=== PATIENT | female | born 1945 | race Caucasian/White ===

== ENCOUNTER 2019-05-24 17:40 | Inpatient (IN) ==
[2019-05-24] MEDS ORDERED: SODIUM CHLORIDE 0.9% 1,000 ML IV STA (18:07)
[2019-05-24 19:01] LABS: Basophils % 0.2 % (0.0-0.8); Eosinophils % 0.1 % (0.00-10.9); Hemoglobin 13.4 GM/DL (12.0-16.0); Immature Granulocytes % 0.9 %; Immature Granulocytes Absolute 0.16 #; Lymphocytes # 1.3 10*3/uL (1.4-4.0); Lymphocytes % 7.4 % (21.3-54.2); Mean Corpuscular HGB Conc 33.5 GM/DL (32-36); Mean Corpuscular Volume 88.3 FL (87-102); Mean Platelet Volume 10.6 FL (9.6-12.0); Monocytes % 8.2 % (1.7-12.7); Neutrophils % 83.2 % (38.7-73.9); Platelet Count 416 T/CUMM (130-400); Red Blood Count 4.53 MC/CUMM (3.8-5.5); Red Cell Distribution Width 15.3 % (9.3-17.3); White Blood Count 17.8 T/CUMM (4-12)
[2019-05-24 19:16] LABS: INR 1.1; PT Patient Result 11.9 SECS (9.6-12.2); Partial Thromboplastin Time 34.3 SECS (20.8-36.0)
[2019-05-24] MEDS ORDERED: CLINDAMYCIN INJ 900 MG in PREMIX 1 EACH IV STA (19:20)
[2019-05-24 19:22] LABS: Albumin 1.9 G/DL (3.4-5.0); Bilirubin,Total 1.2 MG/DL (0.2-1.0); Calcium 6.9 MG/DL (8.5-10.1); Osmolality,Calculated 286.7 MOS/KG (273-304); Total Protein 4.9 G/DL (6.4-8.3)
[2019-05-24 19:26] LABS: Apearance,Urine Slightly Hazy (Clear); Bacteria,Urine Occasional /HPF (Few); Bilirubin,Urine Negative (Negative); Blood, Urine Negative (Negative); Glucose,Urine (UA) Negative (Negative); Hyaline Casts,Urine 46 /LPF (0-3); Ketones,Urine 80 mg/dL (Negative); Mucus,Urine Many /LPF (Occasional); Nitrite,Urine Negative (Negative); Protein,Urine 30 MG/DL; Squamous Epithelial Cell,Urine Occasional /HPF (0-10); Urine Color Yellow (Yellow); Urine Specific Gravity 1.021 (1.001-1.035)
[2019-05-24] MEDS ORDERED: POTASSIUM CHLORIDE RIDER 20 MEQ in PREMIX 1 EACH IV STA (19:27)
[2019-05-24] MEDS ORDERED: POTASSIUM CHLORIDE RIDER 100 ML IV ONE (19:28)
[2019-05-24] MEDS ORDERED: POTASSIUM CHLORIDE RIDER 10 MEQ in PREMIX 1 EACH IV ONE (19:28)
[2019-05-24] MEDS ORDERED: DEXTROSE 50% 25 GM/50 ML VIAL IV STA (19:30)
[2019-05-24] MEDS ORDERED: DEXTROSE 50% 25 GM/50 ML SYRINGE IV ONE (19:34)
[2019-05-24] MEDS ORDERED: ONDANSETRON 4 MG/2 ML VIAL IV PRN (19:41)
[2019-05-24] MEDS ORDERED: SODIUM CHLORIDE 0.9% 1,000 ML IV ONE (21:39)
[2019-05-24] MEDS: DOCUSATE SODIUM 100 MG CAPSULE PO SCH (22:36)
[2019-05-24] MEDS: SODIUM CHLORIDE 0.45% 1,000 ML IV SCH (23:35)
[2019-05-25] MEDS ORDERED: SODIUM CHLORIDE 0.9% 1,000 ML IV ONE ×2 (01:04→23:43)
[2019-05-25] MEDS ORDERED: NOREPINEPHRINE 8 MG in SODIUM CHLORIDE 0.9% 242 ML IV PRN (01:04)
[2019-05-25 02:01] LABS: CKMB % 4.1 %; Troponin I < 0.015 NG/ML (0.00-0.045)
[2019-05-25] MEDS: CLINDAMYCIN 900 MG IV SCH ×3 (04:29→20:49)
[2019-05-25 05:41] LABS: CKMB % 4.1 %; Troponin I < 0.015 NG/ML (0.00-0.045)
[2019-05-25 07:28] LABS: CKMB % 4.3 %; Troponin I < 0.015 NG/ML (0.00-0.045)
[2019-05-25] MEDS: SODIUM CHLORIDE 0.45% 1,000 ML IV SCH (07:41)
[2019-05-25 08:00] LABS: Basophils % 0.3 % (0.0-0.8); Eosinophils # 0.1 10*3/uL (0.0-0.87); Eosinophils % 0.5 % (0.00-10.9); Hematocrit 37.7 VOL% (35.7-47.0); Hemoglobin 12.4 GM/DL (12.0-16.0); Immature Granulocytes % 0.9 %; Immature Granulocytes Absolute 0.12 #; Lymphocytes # 1.5 10*3/uL (1.4-4.0); Lymphocytes % 11.2 % (21.3-54.2); Mean Corpuscular HGB Conc 32.9 GM/DL (32-36); Mean Corpuscular Volume 89.5 FL (87-102); Mean Platelet Volume 10.8 FL (9.6-12.0); Monocytes % 10.1 % (1.7-12.7); Platelet Count 355 T/CUMM (130-400); Red Blood Count 4.21 MC/CUMM (3.8-5.5); Red Cell Distribution Width 15.7 % (9.3-17.3); White Blood Count 13.3 T/CUMM (4-12)
[2019-05-25 08:09] LABS: Albumin 1.9 G/DL (3.4-5.0); Bilirubin,Total 1.1 MG/DL (0.2-1.0); Osmolality,Calculated 274.5 MOS/KG (273-304)
[2019-05-25] MEDS ORDERED: diphenhydrAMINE CAP 25 MG CAPSULE PO PRN (08:23)
[2019-05-25] MEDS ORDERED: MAGNESIUM SULF RIDER 4 GM in PREMIX 1 EACH IV PRN (08:23)
[2019-05-25] MEDS ORDERED: MAGNESIUM SULF RIDER 2 GM in PREMIX 1 EACH IV PRN (08:23)
[2019-05-25] MEDS ORDERED: FLUTICASONE 50 MCG NASAL SPRAY 16 GM BOTTLE BOTH NARES PRN (08:23)
[2019-05-25] MEDS ORDERED: MECLIZINE 12.5 MG TABLET PO PRN (08:23)
[2019-05-25] MEDS ORDERED: DOCUSATE/SENNA 50-8.6 MG TABLET PO PRN (08:23)
[2019-05-25] MEDS ORDERED: MAGNESIUM SULF RIDER 50 ML IV ONE (08:41)
[2019-05-25] MEDS ORDERED: POTASSIUM CHLORIDE 20 MEQ/15 ML UDCUP ONE (08:41)
[2019-05-25] MEDS: POTASSIUM CHLORIDE 20 MEQ/15 ML UDCUP PER TUBE PRN ×6 (08:48→23:08)
[2019-05-25] MEDS: PANTOPRAZOLE 40 MG TABLET PO SCH (08:48)
[2019-05-25] MEDS: SODIUM CHLORIDE 0.9% 1,000 ML IV SCH ×2 (08:49→20:41)
[2019-05-25] MEDS: DOCUSATE SODIUM 100 MG CAPSULE PO SCH ×2 (08:51→20:50)
[2019-05-25] MEDS: RIVAROXABAN 20 MG TABLET PO SCH (09:01)
[2019-05-25] MEDS: AMIODARONE 200 MG TABLET PO SCH (09:01)
[2019-05-25] MEDS: FLUCONAZOLE 100 MG TABLET PO SCH (09:01)
[2019-05-25] MEDS: RANITIDINE 150 MG TABLET PO SCH (09:01)
[2019-05-25] MEDS: NYSTATIN CREAM 15 GM TUBE TOP SCH ×2 (09:28→20:50)
[2019-05-25] MEDS: traMADol 50 MG TABLET PO PRN (12:19)
[2019-05-25] MEDS: VANCOMYCIN INJ 1,750 MG in SODIUM CHLORIDE 0.9% 500 ML IV SCH ×2 (12:51→20:49)
[2019-05-25] MEDS: SKIN HEALING OINT (AQUAPHOR) 50 GM TUBE TOP PRN (14:05)
[2019-05-25] MEDS: MENTHOL/ZINC OXIDE OINT 71 GM JAR TOP SCH ×2 (14:05→20:49)
[2019-05-25] MEDS: NYSTATIN POWDER 15 GM BOTTLE TOP SCH ×2 (14:05→20:50)
[2019-05-25] MEDS: BACITRACIN OINT 0.9 GM PACK TOP SCH (14:05)
[2019-05-26] MEDS: POTASSIUM CHLORIDE 20 MEQ/15 ML UDCUP PER TUBE PRN ×2 (01:38→03:54)
[2019-05-26] MEDS: SODIUM CHLORIDE 0.9% 1,000 ML IV SCH ×4 (02:27→16:20)
[2019-05-26 03:32] LABS: Basophils # 0.1 10*3/uL (0.0-0.2); Eosinophils # 0.1 10*3/uL (0.0-0.87); Eosinophils % 1.5 % (0.00-10.9); Hematocrit 33.9 VOL% (35.7-47.0); Hemoglobin 11.1 GM/DL (12.0-16.0); Immature Granulocytes % 2.3 %; Immature Granulocytes Absolute 0.17 #; Lymphocytes # 1.6 10*3/uL (1.4-4.0); Lymphocytes % 21.6 % (21.3-54.2); Mean Corpuscular HGB Conc 32.7 GM/DL (32-36); Mean Corpuscular Volume 89.7 FL (87-102); Mean Platelet Volume 10.4 FL (9.6-12.0); Monocytes % 12.2 % (1.7-12.7); Neutrophils % 61.4 % (38.7-73.9); Platelet Count 329 T/CUMM (130-400); Red Blood Count 3.78 MC/CUMM (3.8-5.5); Red Cell Distribution Width 16.2 % (9.3-17.3); White Blood Count 7.3 T/CUMM (4-12)
[2019-05-26 03:44] LABS: Albumin 1.9 G/DL (3.4-5.0); Bilirubin,Total 0.9 MG/DL (0.2-1.0); Calcium 7.7 MG/DL (8.5-10.1); Osmolality,Calculated 288.7 MOS/KG (273-304); Total Protein 4.8 G/DL (6.4-8.3)
[2019-05-26] MEDS: CLINDAMYCIN 900 MG IV SCH ×3 (03:54→20:51)
[2019-05-26] MEDS: PANTOPRAZOLE 40 MG TABLET PO SCH (09:07)
[2019-05-26] MEDS: DOCUSATE SODIUM 100 MG CAPSULE PO SCH ×2 (09:07→20:52)
[2019-05-26] MEDS: RANITIDINE 150 MG TABLET PO SCH (09:07)
[2019-05-26] MEDS: RIVAROXABAN 20 MG TABLET PO SCH (09:07)
[2019-05-26] MEDS: BACITRACIN OINT 0.9 GM PACK TOP SCH (09:08)
[2019-05-26] MEDS: AMIODARONE 200 MG TABLET PO SCH (09:08)
[2019-05-26] MEDS: FLUCONAZOLE 100 MG TABLET PO SCH (09:08)
[2019-05-26] MEDS: SKIN HEALING OINT (AQUAPHOR) 50 GM TUBE TOP PRN (09:09)
[2019-05-26] MEDS: MENTHOL/ZINC OXIDE OINT 71 GM JAR TOP SCH ×2 (09:09→20:53)
[2019-05-26] MEDS: NYSTATIN CREAM 15 GM TUBE TOP SCH ×2 (09:09→20:53)
[2019-05-26] MEDS: NYSTATIN POWDER 15 GM BOTTLE TOP SCH ×2 (09:09→20:53)
[2019-05-26] MEDS: VANCOMYCIN INJ 1,750 MG in SODIUM CHLORIDE 0.9% 500 ML IV SCH ×2 (10:29→20:52)
[2019-05-26] MEDS: traMADol 50 MG TABLET PO PRN (20:55)
[2019-05-27] MEDS: SODIUM CHLORIDE 0.9% 1,000 ML IV SCH ×2 (00:11→08:54)
[2019-05-27] MEDS: CLINDAMYCIN 900 MG IV SCH ×3 (03:46→20:24)
[2019-05-27 05:03] LABS: Basophils # 0.2 10*3/uL (0.0-0.2); Basophils % 1.8 % (0.0-0.8); Eosinophils # 0.1 10*3/uL (0.0-0.87); Eosinophils % 1.7 % (0.00-10.9); Hematocrit 32.9 VOL% (35.7-47.0); Hemoglobin 10.6 GM/DL (12.0-16.0); Immature Granulocytes % 4.9 %; Lymphocytes # 1.9 10*3/uL (1.4-4.0); Lymphocytes % 23.6 % (21.3-54.2); Mean Corpuscular HGB Conc 32.2 GM/DL (32-36); Mean Corpuscular Volume 90.9 FL (87-102); Mean Platelet Volume 10.5 FL (9.6-12.0); Monocytes % 11.4 % (1.7-12.7); Neutrophils % 56.6 % (38.7-73.9); Platelet Count 327 T/CUMM (130-400); Red Blood Count 3.62 MC/CUMM (3.8-5.5); Red Cell Distribution Width 16.6 % (9.3-17.3); White Blood Count 8.2 T/CUMM (4-12)
[2019-05-27 05:19] LABS: Albumin 1.9 G/DL (3.4-5.0); Calcium 7.8 MG/DL (8.5-10.1); Osmolality,Calculated 290.6 MOS/KG (273-304)
[2019-05-27] MEDS: POTASSIUM CHLORIDE 20 MEQ/15 ML UDCUP PER TUBE PRN ×3 (05:33→11:55)
[2019-05-27] MEDS: BACITRACIN OINT 0.9 GM PACK TOP SCH (08:04)
[2019-05-27] MEDS: FLUCONAZOLE 100 MG TABLET PO SCH (08:05)
[2019-05-27] MEDS: MENTHOL/ZINC OXIDE OINT 71 GM JAR TOP SCH ×2 (08:05→20:25)
[2019-05-27] MEDS: PANTOPRAZOLE 40 MG TABLET PO SCH (08:05)
[2019-05-27] MEDS: NYSTATIN POWDER 15 GM BOTTLE TOP SCH ×2 (08:05→20:26)
[2019-05-27] MEDS: RANITIDINE 150 MG TABLET PO SCH (08:05)
[2019-05-27] MEDS: AMIODARONE 200 MG TABLET PO SCH (08:05)
[2019-05-27] MEDS: DOCUSATE SODIUM 100 MG CAPSULE PO SCH ×2 (08:05→20:25)
[2019-05-27] MEDS: RIVAROXABAN 20 MG TABLET PO SCH (08:05)
[2019-05-27] MEDS: SKIN HEALING OINT (AQUAPHOR) 50 GM TUBE TOP PRN (08:06)
[2019-05-27] MEDS: NYSTATIN CREAM 15 GM TUBE TOP SCH ×2 (08:06→20:26)
[2019-05-27] MEDS: VANCOMYCIN INJ 1,750 MG in SODIUM CHLORIDE 0.9% 500 ML IV SCH (09:44)
[2019-05-27] MEDS: traMADol 50 MG TABLET PO PRN (20:24)
[2019-05-28] MEDS: SODIUM CHLORIDE 0.9% 1,000 ML IV SCH (04:00)
[2019-05-28] MEDS: CLINDAMYCIN 900 MG IV SCH ×2 (04:30→13:55)
[2019-05-28 05:03] LABS: Basophils # 0.1 10*3/uL (0.0-0.2); Basophils % 1.2 % (0.0-0.8); Eosinophils # 0.1 10*3/uL (0.0-0.87); Eosinophils % 1.5 % (0.00-10.9); Hematocrit 34.7 VOL% (35.7-47.0); Immature Granulocytes Absolute 0.45 #; Lymphocytes % 21.7 % (21.3-54.2); Mean Corpuscular HGB Conc 31.7 GM/DL (32-36); Mean Corpuscular Volume 91.6 FL (87-102); Monocytes % 10.7 % (1.7-12.7); Neutrophils % 59.9 % (38.7-73.9); Platelet Count 300 T/CUMM (130-400); Red Blood Count 3.79 MC/CUMM (3.8-5.5); Red Cell Distribution Width 16.6 % (9.3-17.3); White Blood Count 9.1 T/CUMM (4-12)
[2019-05-28 05:32] LABS: Albumin 1.9 G/DL (3.4-5.0); Bilirubin,Total 1.1 MG/DL (0.2-1.0); Calcium 7.8 MG/DL (8.5-10.1)
[2019-05-28] MEDS: AMIODARONE 200 MG TABLET PO SCH (08:00)
[2019-05-28] MEDS: RIVAROXABAN 20 MG TABLET PO SCH (08:00)
[2019-05-28] MEDS: PANTOPRAZOLE 40 MG TABLET PO SCH (08:00)
[2019-05-28] MEDS: RANITIDINE 150 MG TABLET PO SCH (08:00)
[2019-05-28] MEDS: NYSTATIN CREAM 15 GM TUBE TOP SCH (08:01)
[2019-05-28] MEDS: MENTHOL/ZINC OXIDE OINT 71 GM JAR TOP SCH (08:01)
[2019-05-28] MEDS: DOCUSATE SODIUM 100 MG CAPSULE PO SCH (08:01)
[2019-05-28] MEDS: BACITRACIN OINT 0.9 GM PACK TOP SCH (08:01)
[2019-05-28] MEDS: FLUCONAZOLE 100 MG TABLET PO SCH (08:01)
[2019-05-28] MEDS: NYSTATIN POWDER 15 GM BOTTLE TOP SCH (08:01)
[2019-05-28] MEDS ORDERED: VANCOMYCIN INJ 1,750 MG in SODIUM CHLORIDE 0.9% 500 ML IV SCH (11:00)
[2019-05-28 12:01] VITALS: BP 119/87
== END 2019-05-28 13:56 | DRG 871 ==
LOC: EDUNIT# → EDBD → N.ED 17:40 → N.EDINP 19:41 → N.3E 20:54 → N.CC 23:16
PROVIDERS: ADMIT Internal Medicine; ATTEND Internal Medicine